=== PATIENT | female | born 1965 | race Caucasian/White ===

== ENCOUNTER → 2020-02-05 09:46 | Outpatient (BNVA) | payer BC, SELFPAY | PROVIDERS: Family Provider Family Medicine; PCP Nurse Practitioner Family; Referring Provider Nurse Practitioner Family; Visit Provider Anesthesiology Pain Medicine | DX: M47.816 Spondylosis without myelopathy or radiculopathy, lumbar region (principal); M79.18 Myalgia, other site; M06.9 Rheumatoid arthritis, unspecified; Z79.891 Long term (current) use of opiate analgesic | CPT/HCPCS: 20552; 99204; J1030; J3490 ==

== ENCOUNTER 2020-09-15 12:50 | Outpatient (CLI) | payer BC, SELFPAY ==
--- NOTE | 2020-09-15 12:57 | XR_ITS ---
WS: [id number] Lumbar spine, 3 views, 09/15/2020. Clinical Data: INJURY OF LOW BACK Comparison: None. Findings: No compression fractures or subluxation is seen. There is a dextroscoliosis of the lumbar spine. Disc space narrowing at L2-L3, L3-L4 and L4-L5 is seen. The transverse processes and SI joints are normal . Anterior osteoarthritic spurring is present from L1 through L5. Osteoporosis is noted. There is a lar ge amount of fecal material throughout the colon. XR/XR lumbar spine 2-3V* [id number] Impression: 1. Dextroscoliosis and osteoporosis. 2. Mild osteoarthritis. 3. Multilevel degenerative disc narrowing
== END 2020-09-15 12:51 | disposition home or self-care (01) ==
LOC: RAD 12:54
PROVIDERS: PCP Family Medicine; Visit Provider Family Medicine
DX: S39.92XA Unspecified injury of lower back, initial encounter (principal); X58.XXXA Exposure to other specified factors, initial encounter; M41.86 Other forms of scoliosis, lumbar region; M47.816 Spondylosis without myelopathy or radiculopathy, lumbar region
CPT/HCPCS: 72100

== ENCOUNTER 2020-10-06 09:33 | Outpatient (CLI) | payer BC, SELFPAY ==
--- NOTE | 2020-10-06 09:42 | XR_ITS ---
WS: [id number] Left hip, AP and frog leg, standing pelvis, 10/06/2020 Clinical Data: RHEUMATOID ARTHRITIS/PAIN IN L HIP Comparison: Left hip, 09/21/2011. Findings: No fractures or dislocations are seen. The left hip joint is intact. The soft tissues are not remarka ble. The adjacent pelvis is normal. The right hip is unremarkable. The pubic symphysis and SI joints are normal. XR/XR hip LT 2-3V wo/w pel* [id number] Impression: Negative pelvis and left hip.
== END 2020-10-06 09:34 | disposition home or self-care (01) ==
LOC: RAD 09:39
PROVIDERS: PCP Family Medicine; Visit Provider Internal Medicine Rheumatology
DX: M25.552 Pain in left hip (principal)
CPT/HCPCS: 73502

== ENCOUNTER 2021-05-12 16:43 | Emergency (ER) | payer BC, SELFPAY ==
[2021-05-12 17:03] VITALS: BP 122/72; PULSE 84; RESP 18; TEMP 36.8; O2SAT 88; BMI 18.1
--- NOTE | 2021-05-12 17:32 | CTR_ITS ---
PROCEDURE INFORMATION: Exam: CT Head Without Contrast Exam date and time: 05/12/2021 5:32 PM Age: 55 years old Clinical indication: Altered mental status/memory loss TECHNIQUE: Imaging protocol: Computed tomography of the head without contrast. Radiation optimization: All CT scans at this facility use at least one of these dose optimization techniques: automated exposure control; mA and/or kV adjustment per patient size (includes targeted exams where dose is matched to clinical indication); or iterative reconstruction. COMPARISON: No relevant prior studies available. RADIATION DOSE METRICS: Total DLP (mGy-cm): 669.02 FINDINGS: Brain: Normal. No hemorrhage. Unremarkable white matter. No mass effect. Cerebral ventricles: No ventriculomegaly. Paranasal sinuses: Visualized sinuses are unremarkable. No fluid levels. Mastoid air cells: Visualized mastoid air cells are well aerated. Bones/joints: Unremarkable. No acute fracture. Soft tissues: Unremarkable. CT/CT head wo con* [id number] IMPRESSION: Negative for intracranial hemorrhage or mass effect Radiation Dose CTDIVOL = (mGy): DLP = 669.02 (mGy-cm)
--- NOTE | 2021-05-12 17:32 | ECG_ITS ---
[facility] Test Date: 2021-05-12 Pat Name: Denise Claire Department: Room: Gender: Female [employer]: : 1965 Requested By: Kavon Briggs Order Number: [id number] Horacio MD: Diane Alvarez M.D. Measurements Intervals [place] Rate: 77 P: 66 UT: 80 QRS: 20 QRSD: 88 T: 59 QT: 374 QTc: 425 Interpretive Statements SINUS RHYTHM WITH SHORT UT INTERVAL POSSIBLE RIGHT VENTRICULAR CONDUCTION DELAY [RSR (QR) IN V1/V2] No previous ECG available for comparison Electronically Signed On 05-12-2021 22:20:35 CDT by Diane Alvarez M.D. [id number] f
--- NOTE | 2021-05-12 17:32 | XRR_ITS ---
PROCEDURE INFORMATION: Exam: XR Chest Exam date and time: 05/12/2021 5:32 PM Age: 55 years old Clinical indication: Cough and shortness of breath; Additional info: Dyspnea/cough TECHNIQUE: Imaging protocol: XR of the chest. Views: 1 view. COMPARISON: [facility] Chest 2 views 12/03/2018 1:50 PM FINDINGS: Lungs: Left-sided large bulla and emphysematous changes similar to prior exam causing some rightward deviation of the trachea. Bibasilar atelectasis. Pleural spaces: Unremarkable. No pleural effusion. No pneumothorax. Heart/Mediastinum: Unremarkable. No cardiomegaly. Bones/joints: Unremarkable. XR/XR chest 1V portable [id number] IMPRESSION: 1. Left-sided large bulla and emphysematous changes similar to prior exam causing some rightward deviation of the trachea. 2. Bibasilar atelectasis.
[2021-05-12 17:33] VITALS: PULSE 74; RESP 16; O2SAT 90
[2021-05-12 17:49] LABS: ABG PCO2 49.8 mmHg (35-45); ABG PH Result 7.37 (7.35-7.45); Alveolar-Arterial Oxygen Gradi 2.1 mmHg (5-10); Arterial Blood Gas Hematocrit 37.2 % (37-47); Base Excess ABG 2.4 mmol/L (-2.0-2.0); Blood Gas Sample Type Arterial; Carboxyhemoglobin 0.3 %THgb (0.4-20.1); HCO3 ABG 28.5 mmol/L (22-26); HGB O2 Sat 89.4 % (95-100); Ionized Calcium Level - ABG 1.2 mmol/L (1.1-1.4); Methemoglobin 2.3 % (0.4-1.5); Oxygen Saturation ABG 91.7; PO2 ABG 71.9 mmHg (80.0-100.0); Potassium Level - ABG 4.1 mmol/L (3.5-5.0); Total Hemoglobin 12.1 g/dL (12-16)
[2021-05-12 17:51] LABS: Blood Gas Operator Identificat ED; Blood Gas Sample Site Brachial, left; Oxygen Device ROOM AIR
--- NOTE | 2021-05-12 17:52 | ED_ITS ---
Documented by User: Kavon Hall DO 05/16/21 06:07 HPI - Altered Mental Status General: Chief Complaint: Altered Mental Status Stated Complaint: UNABLE TO STAY AWAKE Time Seen by Provider: 05/12/21 17:08 History of Present Illness: HPI narrative: 55-year-old female presents emergency room with altered mental status is difficult time staying awake family member at the bedside said this began yesterday. She does have a history of rheumatoid arthritis and she is on Humira she had some flareup of joint effusion is pretty impressive in the right hand. She denies any fever sweats chills dysuria urgency or frequency cough shortness of breath abdominal pain leg pain swelling or discomfort. She is not had any anosmia she has had both of her Covid vaccines. There is no known history of cancer heart disease or liver disease. She does take hydrocodone for pain. She also takes a plethora of other drugs which could contribute to her symptoms. There are no reports of any focal neurologic deficits and she has none present at the time of presentation. MD complaint: altered mental status and confusion Onset (ago): hour(s) Timing confirmed by: family member Severity: moderate Consistency of symptoms: Waxing and Waning Associated symptoms: Deny auditory hallucinations, visual hallucinations, delusions, depression, homicidal ideation, racing thoughts or suicidal ideation Review of Systems Const: Denies: fever(s), chills, body aches, change in appetite, fatigue or malaise ENMT: Denies: throat pain, ear or mastoid pain, nasal discharge or nasal congestion Card: Denies: chest pain, edema, dyspnea on exertion or orthopnea Resp: Denies: dyspnea, productive cough or non-productive cough GI: Denies: abdominal pain, nausea, vomiting, hematemesis, coffee ground emesis, diarrhea, constipation, bloating, hematochezia or melena : Denies: flank pain, difficulty voiding, dysuria, urinary frequency or urinary urgency Skin/Breast: Denies: rash or pruritus Psych: Denies: depression, visual hallucinations, auditory hallucinations, suicidal ideation or homicidal ideation [facility] ED PFSH: Medical History COPD (chronic obstructive pulmonary disease) Facet arthritis, degenerative, lumbar spine Hypertension FCI (current) use of opiate analgesic Lumbar paraspinal muscle spasm Myofascial pain dysfunction syndrome Pain management contract signed Rheumatoid arthritis Surgical History Hx of hysterectomy Tubal ligation status Family History Other Family history non-contributory Social History Smoking and tobacco status: current every day smoker cigarettes Packs smoked per day: 0.75 Alcohol intake: current Alcohol intake frequency: holidays/special occasions only Household members: spouse Marital status: History of recent travel: No Physical Exam Const: COMMON NORMALS: no acute distress GENERAL APPEARANCE: cooperative and comfortable HENMT: COMMON NORMALS: normocephalic, atraumatic and hearing grossly normal bilaterally HEAD & SCALP: normocephalic and atraumatic Eye: COMMON NORMALS: Equal, round and reactive pupils present, EOMs intact bilaterally, conjunctivae normal and no scleral icterus CONJUNCTIVA: Yes con junctivae normal PUPIL: Yes Equal, round and reactive pupils present Neck/C-Spine: COMMON NORMALS: no JVD Lymph: LYMPHATIC: no lymphadenopathy noted and no lymphedema noted Resp: COMMON NORMALS: normal respiratory effort, No retractions, No use of accessory muscles and clear to auscultation bilaterally AUSCULTATION: clear to auscultation bilaterally Cardio: COMMON NORMALS: no JVD, regular rate, regular rhythm and No murmurs present (Cardio) RATE: regular rate RHYTHM: regular rhythm GI: COMMON NORMALS: Soft to palpation and No hepatosplenomegaly present AUSCULTATION: Yes normoactive bowel sounds PALPATION: Yes Soft to palpation, No Tenderness to palpation present (GI), No Guarding due to palpation present (GI) and Yes No hepatosplenomegaly present Extremity: COMMON NORMALS: normal to inspection, capillary refill normal, no clubbing, cyanosis or edema, no calf tenderness and no pedal edema Psych: THOUGHT CONTENT: No delusions Skin: COMMON NORMALS: no rashes or lesions noted GENERAL SKIN EXAM: no ra shes or lesions noted Course Vital Signs: Vital signs: Vital Signs Temperature 98.3 F 05/12/21 17:03 Pulse Rate 102 H 06/18/21 22:48 Respiratory Rate 23 H 05/12/21 22:48 Blood Pressure 155/77 05/12/21 22:48 Pulse Oximetry 96 05/12/21 22:48 MDM - Altered Mental Status MDM Narrative: Medical decision making narrative: Labs pending care turned over to Dr. Garg at change of shift see his notes for final diagnosis and disposition Lab Data: Labs: Lab Results 05/12/21 05/12/21 05/12/21 Range/Units 17:41 18:24 18:24 WBC 9.5 (4.0-10.0) 10^3/ uL RBC 3.92 L (4.1-5.3) 10^6/u L Hgb 11.7 (11.5-15.3) g/dL Hct 38.4 (37.0-47.0) % MCV 98.0 (81-99) fL MCH 29.8 (28.0-34.0) pg MCHC 30.5 (30.0-36.0) g/dL RDW 14.8 (12.1-15.1) % Plt Count 341 (130-400) 10^3/c mm MPV 10.4 (7.4-10.4) fL Neut % (Auto) 71.7 % Lymph % (Auto) 14.0 % [place] % (Auto) 11.9 % Eos % (Auto) 1.0 % Baso % (Auto) 1.0 % Neut # (Auto) 6.79 (1.8-7.7) 10^3/u L Lymph # (Auto) 1.3 (0.8-4.8) 10^3/u L [place] # (Auto) 1.1 H (0.2-0.9) 10^3/u L Eos # (Auto) 0.1 (0.0-0.8) 10^3/u L Baso # (Auto) 0.1 (0.0-0.1) 10^3/u L Nucleated RBC % (a uto) 0 % Nucleated RBCs # 0.0 /100WBC D-Dimer (0-0.59) ug/mIFE U Specimen Type Arterial Sample Site Brachial, left ABG pH 7.37 (7.35-7.45) ABG pCO2 49.8 H (35-45) mmHg ABG pO2 71.9 L (80.0-100.0) mmH g ABG HCO3 28.5 H (22-26) mmol/L ABG O2 Saturation 91.7 ABG Base Excess 2.4 H (-2.0-2.0) mmol/ L Nestor Test N/a A-a O2 Gradient 2.1 L (5-10) mmHg Hematocrit 37.2 (37-47) % Hgb O2 Saturation 89.4 L (95-100) % Carboxyhemoglobin 0.3 L (0.4-20.1) %THgb Methemoglobin 2.3 H (0.4-1.5) % Total Hemoglobin 12.1 (12-16) g/dL Sodium 147.0 H (131-143) mmol/L Potassium 4.1 (3.5-5.0) mmol/L Glucose 74.0 (70-115) mg/dL Ionized Calcium 1.2 (1.1-1.4) mmol/L O2 Delivery Device Room air FiO2 21.0 % Pipe Cleaning Machine Operator ID Ed Chloride (98-107) mmol/L Carbon Dioxide (22-29) mmol/L Anion Gap (5-19) BUN (6-20) mg/dL Creatinine (0.5-0.9) mg/dL GFR Calculation (90-130) mL/min Calculated Osmolal ity (285-295) mOsm/k g Lactic Acid 0.9 (0.5-2.2) mmol/L Calcium (8.5-10.5) mg/dL Magnesium (1.7-2.3) mg/dL Total Bilirubin (0.15-1.2) mg/dL AST (0-32) U/L ALT (0-33) U/L Alkaline Phosphata se (35-105) IU/L Ammonia (11-51) umol/L Creatine Kinase (26-192) U/L Troponin T Baselin e (0-10) ng/L Troponin T 120 [address] [place] (0-10) ng/L Delta Troponin T (0-10) ABS# Total Protein (6.6-8.7) g/dL Albumin (3.5-5.2) g/dL Globulin (1.3-4.6) g/dL Lipase (13-60) U/L Urine Color (Yellow) Urine Appearance (CLEAR) Urine pH (5-7) Ur Specific Gravit y (1.005-1.030) Urine Protein (Negative) Urine Glucose (UA) (Normal) Urine Ketones (Negative) Urine Blood (Negative) Urine Nitrate (Negative) Urine Bilirubin (Negative) Urine Urobilinogen (Negative) mg/dL Ur Leukocyte Krystle ase (Negative) 05/12/21 05/12/21 05/12/21 Range/Units 18:24 18:24 18:24 WBC (4.0-10.0) 10^3/ uL RBC (4.1-5.3) 10^6/u L Hgb (11.5-15.3) g/dL Hct (37.0-47.0) % MCV (81-99) fL MCH (28.0-34.0) pg MCHC (30.0-36.0) g/dL RDW (12.1-15.1) % Plt Count (130-400) 10^3/c mm MPV (7.4-10.4) fL Neut % (Auto) % Lymph % (Auto) % [place] % (Auto) % Eos % (Auto) % Baso % (Auto) % Neut # (Auto) (1.8-7.7) 10^3/u L Lymph # (Auto) (0.8-4.8) 10^3/u L [place] # (Auto) (0.2-0.9) 10^3/u L Eos # (Auto) (0.0-0.8) 10^3/u L Baso # (Auto) (0.0-0.1) 10^3/u L Nucleated RBC % (a uto) % Nucleated RBCs # /100WBC D-Dimer (0-0.59) ug/mIFE U Specimen Type Sample Site ABG pH (7.35-7.45) ABG pCO2 (35-45) mmHg ABG pO2 (80.0-100.0) mmH g ABG HCO3 (22-26) mmol/L ABG O2 Saturation ABG Base Excess (-2.0-2.0) mmol/ L Nestor Test A-a O2 Gradient (5-10) mmHg Hematocrit (37-47) % Hgb O2 Saturation (95-100) % Carboxyhemoglobin (0.4-20.1) %THgb Methemoglobin (0.4-1.5) % Total Hemoglobin (12-16) g/dL Sodium 144 (131-143) mmol/L Potassium 4.6 (3.5-5.0) mmol/L Glucose 67 (70-115) mg/dL Ionized Calcium (1.1-1.4) mmol/L O2 Delivery Device FiO2 % Pipe Cleaning Machine Operator ID Chloride 105 (98-107) mmol/L Carbon Dioxide 29 (22-29) mmol/L Anion Gap 14.6 (5-19) BUN 39 H (6-20) mg/dL Creatinine 1.0 H (0.5-0.9) mg/dL GFR Calculation 57.6 L (90-130) mL/min Calculated Osmolal ity 306 H (285-295) mOsm/k g Lactic Acid (0.5-2.2) mmol/L Calcium 9.4 (8.5-10.5) mg/dL Magnesium 2.3 (1.7-2.3) mg/dL Total Bilirubin 0.4 (0.15-1.2) mg/dL AST 20 (0-32) U/L ALT 21 (0-33) U/L Alkaline Phosphata se 79 (35-105) IU/L Ammonia 10 L (11-51) umol/L Creatine Kinase 45 (26-192) U/L Troponin T Baselin e 15 H (0-10) ng/L Troponin T 120 Min [place] (0-10) ng/L Delta Troponin T (0-10) ABS# Total Protein 6.0 L (6.6-8.7) g/dL Albumin 3.8 (3.5-5.2) g/dL Globulin 2.2 (1.3-4.6) g/dL Lipase 15 (13-60) U/L Urine Color (Yellow) Urine Appearance (CLEAR) Urine pH (5-7) Ur Specific Gravit y (1.005-1.030) Urine Protein (Negative) Urine Glucose (UA) (Normal) Urine Ketones (Negative) Urine Blood (Negative) Urine Nitrate (Negative) Urine Bilirubin (Negative) Urine Urobilinogen (Negative) mg/dL Ur Leukocyte Krystle ase (Negative) 05/12/21 05/12/21 05/12/21 Range/Units 19:03 21:28 21:28 WBC (4.0-10.0) 10^3/ uL RBC (4.1-5.3) 10^6/u L Hgb (11.5-15.3) g/dL Hct (37.0-47.0) % MCV (81-99) fL MCH (28.0-34.0) pg MCHC (30.0-36.0) g/dL RDW (12.1-15.1) % Plt Count (130-400) 10^3/c mm MPV (7.4-10.4) fL Neut % (Auto) % Lymph % (Auto) % [place] % (Auto) % Eos % (Auto) % Baso % (Auto) % Neut # (Auto) (1.8-7.7) 10^3/u L Lymph # (Auto) (0.8-4.8) 10^3/u L [place] # (Auto) (0.2-0.9) 10^3/u L Eos # (Auto) (0.0-0.8) 10^3/u L Baso # (Auto) (0.0-0.1) 10^3/u L Nucleated RBC % (a uto) % Nucleated RBCs # /100WBC D-Dimer 0.36 (0-0.59) ug/mIFE U Specimen Type Sample Site ABG pH (7.35-7.45) ABG pCO2 (35-45) mmHg ABG pO2 (80.0-100.0) mmH g ABG HCO3 (22-26) mmol/L ABG O2 Saturation ABG Base Excess (-2.0-2.0) mmol/ L Nestor Test A-a O2 Gradient (5-10) mmHg Hematocrit (37-47) % Hgb O2 Saturation (95-100) % Carboxyhemoglobin (0.4-20.1) %THgb Methemoglobin (0.4-1.5) % Total Hemoglobin (12-16) g/dL Sodium (131-143) mmol/L Potassium (3.5-5.0) mmol/L Glucose (70-115) mg/dL Ionized Calcium (1.1-1.4) mmol/L O2 Delivery Device FiO2 % Pipe Cleaning Machine Operator ID Chloride (98-107) mmol/L Carbon Dioxide (22-29) mmol/L Anion Gap (5-19) BUN (6-20) mg/dL Creatinine (0.5-0.9) mg/dL GFR Calculation (90-130) mL/min Calculated Osmolal ity (285-295) mOsm/k g Lactic Acid (0.5-2.2) mmol/L Calcium (8.5-10.5) mg/dL Magnesium (1.7-2.3) mg/dL Total Bilirubin (0.15-1.2) mg/dL AST (0-32) U/L ALT (0-33) U/L Alkaline Phosphata se (35-105) IU/L Ammonia (11-51) umol/L Creatine Kinase (26-192) U/L Troponin T Baselin e (0-10) ng/L Troponin T 120 Min [place] 13.79 H (0-10) ng/L Delta Troponin T -1.21 L (0-10) ABS# Total Protein (6.6-8.7) g/dL Albumin (3.5-5.2) g/dL Globulin (1.3-4.6) g/dL Lipase (13-60) U/L Urine Color Yellow (Yellow) Urine Appearance Clear (CLEAR) Urine pH 5 (5-7) Ur Specific Gravit y 1.025 (1.005-1.030) Urine Protein Neg (Negative) Urine Glucose (UA) Norm (Normal) Urine Ketones 1+ H (Negative) Urine Blood Neg (Negative) Urine Nitrate Negative (Negative) Urine Bilirubin Neg (Negative) Urine Urobilinogen Norm (Negative) mg/dL Ur Leukocyte Krystle ase Negative (Negative) Discharge Plan Discharge Patient Disposition: Placed in Observation Clinical Impression: Altered mental status, Acute dehydration, Respiratory failure Condition: Stable Prescriptions: No Action ferrous sulfate 325 mg (65 mg iron) tablet 325 mg PO DAILY RF: 0 hydrocodone-acetaminophen 10-325 mg tablet 1 tab PO Q8H PRN (Reason: Pain) RF: 0 Xeljanz XR 11 mg tablet extended release 24 hr 11 mg PO DAILY RF: 0 prednisone 10 mg tablet 10 mg PO DAILY RF: 0 baclofen 10 mg tablet 10 mg PO TID RF: 0 lisinopril 40 mg tablet 40 mg PO DAILY RF: 0 simvastatin 10 mg tablet 10 mg PO DAILY RF: 0 Symbicort 80-4.5 mcg/actuation HFA aerosol inhaler 2 puff INHALATION BID RF: 0 vitamin B complex [B Complex-Vitamin B12] Tablet 1 tab PO DAILY RF: 0 amitriptyline 25 mg tablet 25 mg PO DAILY RF: 0 paroxetine HCl 30 mg tablet 30 mg PO DAILY RF: 0 aspirin [Enteric Coated Aspirin] 81 mg tablet,delayed release (DR/EC) 81 mg PO DAILY RF: 0 leflunomide 20 mg tablet 20 mg PO DAILY RF: 0 amlodipine 5 mg tablet 5 mg PO DAILY RF: 0 cholecalciferol (vitamin D3) 25 mcg (1,000 unit) capsule 25 mcg PO DAILY RF: 0 Mucus Relief D (pseudoephed) 60-600 mg tablet extended release 12 hr 1 tab PO DAILY PRN (Reason: Congestion) RF: 0 gabapentin 300 mg capsule 300 mg PO DAILY RF: 0 duloxetine 60 mg capsule,delayed release(DR/EC) 60 mg PO DAILY RF: 0 Humira(CF) Pen 40 mg/0.4 mL pen injector kit 40 mg SUBCUT Q7D RF: 0 Discharge Orders: Discharge Order (Routine); Ordered 05/12/21 Ordered By: Surya Garg Discharge ED (Routine); Ordered 05/12/21 Ordered By: Surya Garg Referrals: Carolee Dueñas DO [Primary Care Provider] - Patient Instructions: Dehydration (ED), Altered Mental Status (ED), Opioid Safety Activity Restrictions/Additional Instructions: Make sure you drink plenty of liquids, particularly for the next 24 to 48 hours. Decrease the hydrocodone by 2 pills daily, the baclofen by 2 pills daily, and stop the gabapentin. Follow-up with your primary care doctor regarding further medication changes. Return for worsening mental status despite treatment. 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 Lumbar paraspinal muscle spasm Myofascial pain dysfunction syndrome Pain management contract signed Rheumatoid arthritis Surgical History Hx of hysterectomy Tubal ligation status Family History Other Family history non-contributory Social History Smoking and tobacco status: current every day smoker cigarettes Packs smoked per day: 0.75 Alcohol intake: current Alcohol intake frequency: holidays/special occasions only Household members: spouse Marital status: History of recent travel: No Course Consultations: Consultation #1: blake Time: 21:44 Vital Signs: Vital signs: Vital Signs Temperature 98.3 F 05/12/21 17:03 Pulse Rate 102 H 05/12/21 22:48 Respiratory Rate 23 H 05/12/21 22:48 Blood Pressure 155/77 05/12/21 22:48 Pulse Oximetry 96 05/12/21 22:48 MDM - Altered Mental Status MDM Narrative: Medical decision making narrative: 55-year-old female checked out to me by Dr. Hall. There is a history of mild mental status change. The patient's laboratory is not terribly abnormal. She does have a elevated BUN, and mild elevation in creatinine indicating dehydration that is likely mild. Her other labs are noncontributory. Her chest x-ray and brain CT are negative. She likely is experiencing effects of polypharmacy given duloxetine amitriptyline gabapentin hydrocodone baclofen, and possibly paroxetine. However, she is hypoxic at rest, with oxygen saturations as low as 83% on room air. She was placed on 2 L with oxygen saturations above 90%. She is very sleepy, awakens to voice. She would be a fall risk at home. She will be observed. The patient is now stating that she wants to go home. Her son is here with her, and agrees to take her home. They were strongly advised that she needs to stay in the hospital. They know the risks of taking the patient home who is hypoxic during sleep. They were advised to decrease her dosage of medicine, make sure she is hydrated, and return for any problems. Lab Data: Labs: Lab Results 05/12/21 05/12/21 05/12/21 Range/Units 17:41 18:24 18:24 WBC 9.5 (4.0-10.0) 10^3/ uL RBC 3.92 L (4.1-5.3) 10^6/u L Hgb 11.7 (11.5-15.3) g/dL Hct 38.4 (37.0-47.0) % MCV 98.0 (81-99) fL MCH 29.8 (28.0-34.0) pg MCHC 30.5 (30.0-36.0) g/dL RDW 14.8 (12.1-15.1) % Plt Count 341 (130-400) 10^3/c mm MPV 10.4 (7.4-10.4) fL Neut % (Auto) 71.7 % Lymph % (Auto) 14.0 % [place] % (Auto) 11.9 % Eos % (Auto) 1.0 % Baso % (Auto) 1.0 % Neut # (Auto) 6.79 (1.8-7.7) 10^3/u L Lymph # (Auto) 1.3 (0.8-4.8) 10^3/u L [place] # (Auto) 1.1 H (0.2-0.9) 10^3/u L Eos # (Auto) 0.1 (0.0-0.8) 10^3/u L Baso # (Auto) 0.1 (0.0-0.1) 10^3/u L Nucleated RBC % (a uto) 0 % Nucleated RBCs # 0.0 /100WBC D-Dimer (0-0.59) ug/mIFE U Specimen Type Arterial Sample Site Brachial, left ABG pH 7.37 (7.35-7.45) ABG pCO2 49.8 H (35-45) mmHg ABG pO2 71.9 L (80.0-100.0) mmH g ABG HCO3 28.5 H (22-26) mmol/L ABG O2 Saturation 91.7 ABG Base Excess 2.4 H (-2.0-2.0) mmol/ L Nestor Test N/a A-a O2 Gradient 2.1 L (5-10) mmHg Hematocrit 37.2 (37-47) % Hgb O2 Saturation 89.4 L (95-100) % Carboxyhemoglobin 0.3 L (0.4-20.1) %THgb Methemoglobin 2.3 H (0.4-1.5) % Total Hemoglobin 12.1 (12-16) g/dL Sodium 147.0 H (131-143) mmol/L Potassium 4.1 (3.5-5.0) mmol/L Glucose 74.0 (70-115) mg/dL Ionized Calcium 1.2 (1.1-1.4) mmol/L O2 Delivery Device Room air FiO2 21.0 % Pipe Cleaning Machine Operator ID Ed Chloride (98-107) mmol/L Carbon Dioxide (22-29) mmol/L Anion Gap (5-19) BUN (6-20) mg/dL Creatinine (0.5-0.9) mg/dL GFR Calculation (90-130) mL/min Calculated Osmolal ity (285-295) mOsm/k g Lactic Acid 0.9 (0.5-2.2) mmol/L Calcium (8.5-10.5) mg/dL Magnesium (1.7-2.3) mg/dL Total Bilirubin (0.15-1.2) mg/dL AST (0-32) U/L ALT (0-33) U/L Alkaline Phosphata se (35-105) IU/L Ammonia (11-51) umol/L Creatine Kinase (26-192) U/L Troponin T Baselin e (0-10) ng/L Troponin T 120 Min [place] (0-10) ng/L Delta Troponin T (0-10) ABS# Total Protein (6.6-8.7) g/dL Albumin (3.5-5.2) g/dL Globulin (1.3-4.6) g/dL Lipase (13-60) U/L Urine Color (Yellow) Urine Appearance (CLEAR) Urine pH (5-7) Ur Specific Gravit y (1.005-1.030) Urine Protein (Negative) Urine Glucose (UA) (Normal) Urine Ketones (Negative) Urine Blood (Negative) Urine Nitrate (Negative) Urine Bilirubin (Negative) Urine Urobilinogen (Negative) mg/dL Ur Leukocyte Krystle ase (Negative) 05/12/21 05/12/21 05/12/21 Range/Units 18:24 18:24 18:24 WBC (4.0-10.0) 10^3/ uL RBC (4.1-5.3) 10^6/u L Hgb (11.5-15.3) g/dL Hct (37.0-47.0) % MCV (81-99) fL MCH (28.0-34.0) pg MCHC (30.0-36.0) g/dL RDW (12.1-15.1) % Plt Count (130-400) 10^3/c mm MPV (7.4-10.4) fL Neut % (Auto) % Lymph % (Auto) % [place] % (Auto) % Eos % (Auto) % Baso % (Auto) % Neut # (Auto) (1.8-7.7) 10^3/u L Lymph # (Auto) (0.8-4.8) 10^3/u L [place] # (Auto) (0.2-0.9) 10^3/u L Eos # (Auto) (0.0-0.8) 10^3/u L Baso # (Auto) (0.0-0.1) 10^3/u L Nucleated RBC % (a uto) % Nucleated RBCs # /100WBC D-Dimer (0-0.59) ug/mIFE U Specimen Type Sample Site ABG pH (7.35-7.45) ABG pCO2 (35-45) mmHg ABG pO2 (80.0-100.0) mmH g ABG HCO3 (22-26) mmol/L ABG O2 Saturation ABG Base Excess (-2.0-2.0) mmol/ L Nestor Test A-a O2 Gradient (5-10) mmHg Hematocrit (37-47) % Hgb O2 Saturation (95-100) % Carboxyhemoglobin (0.4-20.1) %THgb Methemoglobin (0.4-1.5) % Total Hemoglobin (12-16) g/dL Sodium 144 (131-143) mmol/L Potassium 4.6 (3.5-5.0) mmol/L Glucose 67 (70-115) mg/dL Ionized Calcium (1.1-1.4) mmol/L O2 Delivery Device FiO2 % Pipe Cleaning Machine Operator ID Chloride 105 (98-107) mmol/L Carbon Dioxide 29 (22-29) mmol/L Anion Gap 14.6 (5-19) BUN 39 H (6-20) mg/dL Creatinine 1.0 H (0.5-0.9) mg/dL GFR Calculation 57.6 L (90-130) mL/min Calculated Osmolal ity 306 H (285-295) mOsm/k g Lactic Acid (0.5-2.2) mmol/L Calcium 9.4 (8.5-10.5) mg/dL Magnesium 2.3 (1.7-2.3) mg/dL Total Bilirubin 0.4 (0.15-1.2) mg/dL AST 20 (0-32) U/L ALT 21 (0-33) U/L Alkaline Phosphata se 79 (35-105) IU/L Ammonia 10 L (11-51) umol/L Creatine Kinase 45 (26-192) U/L Troponin T Baselin e 15 H (0-10) ng/L Troponin T 120 Min [place] (0-10) ng/L Delta Troponin T (0-10) ABS# Total Protein 6.0 L (6.6-8.7) g/dL Albumin 3.8 (3.5-5.2) g/dL Globulin 2.2 (1.3-4.6) g/dL Lipase 15 (13-60) U/L Urine Color (Yellow) Urine Appearance (CLEAR) Urine pH (5-7) Ur Specific Gravit y (1.005-1.030) Urine Protein (Negative) Urine Glucose (UA) (Normal) Urine Ketones (Negative) Urine Blood (Negative) Urine Nitrate (Negative) Urine Bilirubin (Negative) Urine Urobilinogen (Negative) mg/dL Ur Leukocyte Krystle ase (Negative) 05/12/21 05/12/21 05/12/21 Range/Units 19:03 21:28 21:28 WBC (4.0-10.0) 10^3/ uL RBC (4.1-5.3) 10^6/u L Hgb (11.5-15.3) g/dL Hct (37.0-47.0) % MCV (81-99) fL MCH (28.0-34.0) pg MCHC (30.0-36.0) g/dL RDW (12.1-15.1) % Plt Count (130-400) 10^3/c mm MPV (7.4-10.4) fL Neut % (Auto) % Lymph % (Auto) % [place] % (Auto) % Eos % (Auto) % Baso % (Auto) % Neut # (Auto) (1.8-7.7) 10^3/u L Lymph # (Auto) (0.8-4.8) 10^3/u L [place] # (Auto) (0.2-0.9) 10^3/u L Eos # (Auto) (0.0-0.8) 10^3/u L Baso # (Auto) (0.0-0.1) 10^3/u L Nucleated RBC % (a uto) % Nucleated RBCs # /100WBC D-Dimer 0.36 (0-0.59) ug/mIFE U Specimen Type Sample Site ABG pH (7.35-7.45) ABG pCO2 (35-45) mmHg ABG pO2 (80.0-100.0) mmH g ABG HCO3 (22-26) mmol/L ABG O2 Saturation ABG Base Excess (-2.0-2.0) mmol/ L Nestor Test A-a O2 Gradient (5-10) mmHg Hematocrit (37-47) % Hgb O2 Saturation (95-100) % Carboxyhemoglobin (0.4-20.1) %THgb Methemoglobin (0.4-1.5) % Total Hemoglobin (12-16) g/dL Sodium (131-143) mmol/L Potassium (3.5-5.0) mmol/L Glucose (70-115) mg/dL Ionized Calcium (1.1-1.4) mmol/L O2 Delivery Device FiO2 % Pipe Cleaning [employer] Operator ID Chloride (98-107) mmol/L Carbon Dioxide (22-29) mmol/L Anion Gap (5-19) BUN (6-20) mg/dL Creatinine (0.5-0.9) mg/dL GFR Calculation (90-130) mL/min Calculated Osmolal ity (285-295) mOsm/k g Lactic Acid (0.5-2.2) mmol/L Calcium (8.5-10.5) mg/dL Magnesium (1.7-2.3) mg/dL Total Bilirubin (0.15-1.2) mg/dL AST (0-32) U/L ALT (0-33) U/L Alkaline Phosphata se (35-105) IU/L Ammonia (11-51) umol/L Creatine Kinase (26-192) U/L Troponin T Baselin e (0-10) ng/L Troponin T 120 Min [place] 13.79 H (0-10) ng/L Delta Troponin T -1.21 L (0-10) ABS# Total Protein (6.6-8.7) g/dL Albumin (3.5-5.2) g/dL Globulin (1.3-4.6) g/dL Lipase (13-60) U/L Urine Color Yellow (Yellow) Urine Appearance Clear (CLEAR) Urine pH 5 (5-7) Ur Specific Gravit y 1.025 (1.005-1.030) Urine Protein Neg (Negative) Urine Glucose (UA) Norm (Normal) Urine Ketones 1+ H (Negative) Urine Blood Neg (Negative) Urine Nitrate Negative (Negative) Urine Bilirubin Neg (Negative) Urine Urobilinogen Norm (Negative) mg/dL Ur Leukocyte Krystle ase Negative (Negative) Discharge Plan Discharge Patient Disposition: Placed in Observation Clinical Impression: Altered mental status, Acute dehydration, Respiratory failure Condition: Stable Prescriptions: No Action ferrous sulfate 325 mg (65 mg iron) tablet 325 mg PO DAILY RF: 0 hydrocodone-acetaminophen 10-325 mg tablet 1 tab PO Q8H PRN (Reason: Pain) RF: 0 Xeljanz XR 11 mg tablet extended release 24 hr 11 mg PO DAILY RF: 0 prednisone 10 mg tablet 10 mg PO DAILY RF: 0 baclofen 10 mg tablet 10 mg PO TID RF: 0 lisinopril 40 mg tablet 40 mg PO DAILY RF: 0 simvastatin 10 mg tablet 10 mg PO DAILY RF: 0 Symbicort 80-4.5 mcg/actuation HFA aerosol inhaler 2 puff INHALATION BID RF: 0 vitamin B complex [B Complex-Vitamin B12] Tablet 1 tab PO DAILY RF: 0 amitriptyline 25 mg tablet 25 mg PO DAILY RF: 0 paroxetine HCl 30 mg tablet 30 mg PO DAILY RF: 0 aspirin [Enteric Coated Aspirin] 81 mg tablet,delayed release (DR/EC) 81 mg PO DAILY RF: 0 leflunomide 20 mg tablet 20 mg PO DAILY RF: 0 amlodipine 5 mg tablet 5 mg PO DAILY RF: 0 cholecalciferol (vitamin D3) 25 mcg (1,000 unit) capsule 25 mcg PO DAILY RF: 0 Mucus Relief D (pseudoephed) 60-600 mg tablet extended release 12 hr 1 tab PO DAILY PRN (Reason: Congestion) RF: 0 gabapentin 300 mg capsule 300 mg PO DAILY RF: 0 duloxetine 60 mg capsule,delayed release(DR/EC) 60 mg PO DAILY RF: 0 Humira(CF) Pen 40 mg/0.4 mL pen injector kit 40 mg SUBCUT Q7D RF: 0 Discharge Orders: Discharge Order (Routine); Ordered 05/12/21 Ordered By: Surya Garg Discharge ED (Routine); Ordered 05/12/21 Ordered By: Surya Garg Referrals: Carolee Dueñas DO [Primary Care Provider] - Patient Instructions: Dehydration (ED), Altered Mental Status (ED), Opioid Safety Activity Restrictions/Additional Instructions: Make sure you drink plenty of liquids, particularly for the next 24 to 48 hours. Decrease the hydrocodone by 2 pills daily, the baclofen by 2 pills daily, and stop the gabapentin. Follow-up with your primary care doctor regarding further medication changes. Return for worsening mental status despite treatment. Coding Level of Care Code ED Sponge Packer for Lucinda Fwd Exam Comprehensive
[2021-05-12 18:34] LABS: Basophils # 0.1 10^3/uL (0.0-0.1); Eosinophils # 0.1 10^3/uL (0.0-0.8); Hematocrit 38.4 % (37.0-47.0); Hemoglobin 11.7 g/dL (11.5-15.3); Lymphocytes # 1.3 10^3/uL (0.8-4.8); Mean Corpuscular HGB Conc 30.5 g/dL (30.0-36.0); Mean Corpuscular Hemoglobin 29.8 pg (28.0-34.0); Mean Platelet Volume 10.4 fL (7.4-10.4); Monocytes # 1.1 10^3/uL (0.2-0.9); Monocytes % 11.9 %; Neutrophils # 6.79 10^3/uL (1.8-7.7); Neutrophils % 71.7 %; Nucleated Red Blood Cells % 0 %; Platelet Count 341 10^3/cmm (130-400); Red Blood Count 3.92 10^6/uL (4.1-5.3); Red Cell Distribution Width 14.8 % (12.1-15.1); White Blood Count 9.5 10^3/uL (4.0-10.0)
[2021-05-12 19:07] LABS: Lactic Sepsis W/Reflex 0.9 mmol/L (0.5-2.2)
[2021-05-12 19:08] LABS: Ammonia 10 umol/L (11-51)
[2021-05-12 19:09] LABS: Alanine Aminotransferase 21 U/L (0-33); Albumin Level 3.8 g/dL (3.5-5.2); Alkaline Phosphatase 79 IU/L (35-105); Anion Gap 14.6 (5-19); Aspartate Amino Transferase 20 U/L (0-32); Blood Urea Nitrogen 39 mg/dL (6-20); Calcium 9.4 mg/dL (8.5-10.5); Carbon Dioxide 29 mmol/L (22-29); Chloride 105 mmol/L (98-107); Creatine Phosphokinase 45 U/L (26-192); Creatinine Clr Calc Pharmacy 40.9647; Globulin 2.2 g/dL (1.3-4.6); Glomerular Filtration Rate 57.6 mL/min (90-130); Glucose 67 mg/dL (65-115); Lipase 15 U/L (13-60); Magnesium 2.3 mg/dL (1.7-2.3); Osmolality Calculated 306 mOsm/kg (285-295); Potassium 4.6 mmol/L (3.5-5.1); Sodium 144 mmol/L (136-145); Total Bilirubin 0.4 mg/dL (0.15-1.2)
[2021-05-12 19:10] LABS: Troponin(5th) Baseline 15 ng/L (0-10)
[2021-05-12 19:11] LABS: Add Urine Microscopic? NO; Charge for UA Resulting for Rev
[2021-05-12 19:14] LABS: Urine Appearance Clear (CLEAR); Urine Color Yellow (Yellow); pH Urine 5 (5-7)
[2021-05-12 19:15] LABS: Bilirubin Urine Neg (Negative); Blood Urine Neg (Negative); Glucose Urine UA Norm (Normal); Ketones Urine 1+ (Negative); Leukocyte Esterase Urine Negative (Negative); Nitrate Urine Negative (Negative); Protein Urine Neg (Negative); Specific Gravity, Urine 1.025 (1.005-1.030); Urobilinogen Urine Norm (Negative)
--- NOTE | 2021-05-12 19:33 | ECG_ITS ---
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 Measurements Intervals [place] Rate: 88 P: 78 NM: 105 QRS: 27 QRSD: 84 T: 74 QT: 343 QTc: 415 Interpretive Statements SINUS RHYTHM WITH SHORT NM INTERVAL POSSIBLE RIGHT ATRIAL ENLARGEMENT [0.25mV P WAVE] POSSIBLE LEFT ATRIAL ENLARGEMENT [-0.1mV P WAVE IN V1/V2] POSSIBLE RIGHT VENTRICULAR CONDUCTION DELAY [RSR (QR) IN V1/V2] Compared to ECG 05/12/2021 18:14:31 No significant changes Electronically Signed On 05-12-2021 22:32:24 CDT by Diane Alvarez M.D. [id number]
[2021-05-12] MEDS: sodium chloride 0.9% 1,000 ML 999 ML IV (20:18)
[2021-05-12 21:00] VITALS: BP 157/95; PULSE 102; RESP 23; O2SAT 99
[2021-05-12 21:55] LABS: Troponin 5 2HR 13.79 ng/L (0-10)
[2021-05-12 21:57] LABS: Troponin 5 2HR Delta -1.21 ABS# (0-10)
--- NOTE | 2021-05-12 22:01 | P.HP_ITS ---
Providers/Chief Complaint Primary Care Provider: Carolee Dueñas DO Chief Complaint: UNABLE TO STAY AWAKE History of Present Illness Denise Claire is a 55 year old female Medications/Allergies Home Medications Medication Instructions Recorded Confirmed Last Taken Type amitriptyline 25 mg tablet 25 mg PO DAILY 02/05/20 05/12/21 Unknown History amlodipine 5 mg tablet 5 mg PO DAILY 02/05/20 05/12/21 Unknown History aspirin 81 mg tablet,delayed 81 mg PO DAILY 02/05/20 05/12/21 Unknown History release baclofen 10 mg tablet 10 mg PO TID 02/05/20 05/12/21 Unknown History budesonide-formoterol HFA 80 2 puff INHALATION BID 02/05/20 05/12/21 Unknown History mcg-4.5 mcg/actuation aerosol inhaler cholecalciferol (vitamin D3) 25 25 mcg PO DAILY 02/05/20 05/12/21 Unknown History mcg (1,000 unit) capsule ferrous sulfate 325 mg (65 mg 325 mg PO DAILY 02/05/20 05/12/21 Unknown History iron) tablet hydrocodone 10 mg-acetaminophen 1 tab PO Q8H PRN 02/05/20 05/12/21 Unknown History 325 mg tablet leflunomide 20 mg tablet 20 mg PO DAILY 02/05/20 05/12/21 Unknown History lisinopril 40 mg tablet 40 mg PO DAILY 02/05/20 05/12/21 Unknown History paroxetine HCl 30 mg tablet 30 mg PO DAILY 02/05/20 05/12/21 Unknown History prednisone 10 mg tablet 10 mg PO DAILY 02/05/20 05/12/21 Unknown History simvastatin 10 mg tablet 10 mg PO DAILY 02/05/20 05/12/21 Unknown History tofacitinib 11 mg tablet,extended 11 mg PO DAILY 02/05/20 05/12/21 Unknown History release 24 hr vitamin B complex 1 tab PO DAILY 02/05/20 05/12/21 Unknown History adalimumab [Humira(CF) Pen] 40 mg SUBCUT Q7D 05/12/21 05/12/21 Unknown History duloxetine 60 mg PO DAILY 05/12/21 05/12/21 Unknown History gabapentin 300 mg PO DAILY 05/12/21 05/12/21 Unknown History pseudoephedrine-guaifenesin [Mucus 1 tab PO DAILY PRN 05/12/21 05/12/21 Unknown History Relief D (pseudoephed)] Allergies Allergy/AdvReac Type Severity Reaction Status Date / Time No Known Allergies Allergy Verified 02/05/20 10:07 PFSH Acute PFSH: Medical History COPD (chronic obstructive pulmonary disease) Facet arthritis, degenerative, lumbar spine 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 Lumbar paraspinal muscle spasm Myofascial pain dysfunction syndrome Pain management contract signed Rheumatoid arthritis Surgical History Hx of hysterectomy Tubal ligation status Family History (Updated 05/12/21 @ 22:03 by Rosalia Boss MD) Other Family history non-contributory Social History Smoking and tobacco status: current every day smoker cigarettes Packs smoked per day: 0.75 Alcohol intake: current Alcohol intake frequency: holidays/special occasions only Household members: spouse Marital status: History of recent travel: No Vitals/I&O/Wt Last Vital Signs Temp 98.3 F 05/12/21 17:03 Pulse 74 05/12/21 17:33 Resp 16 05/12/21 17:33 BP 122/72 05/12/21 17:03 Pulse Ox 90 05/12/21 17:33 Weight last 48 hrs Weight 40.823 kg Data : 05/12/21 18:24 05/12/21 18:24 A&P Assessment and plan (1) Acute dehydration: Status: Acute (2) Altered mental status: Status: Acute Qualifiers: Altered mental status type: disorientation Qualified Code(s): R41.0 - Disorientation, unspecified (3) Polypharmacy: Status: Acute Coding Level of Care Code Acute Appeals Examiner for [facility] Diagnoses Acute dehydration E86.0 Altered mental status R41.0 Altered mental status type: disorientation Polypharmacy Z79.899
[2021-05-12 22:22] VITALS: BP 157/95; PULSE 98; RESP 20; O2SAT 94
[2021-05-12 22:35] LABS: D Dimer 0.36 ug/mIFEU (0-0.59)
[2021-05-12 22:48] VITALS: BP 155/77; PULSE 102; RESP 23; O2SAT 96
== END 2021-05-12 22:49 | disposition still patient (30) ==
LOC: ER 22:00 → MEDSURG 22:27
PROVIDERS: Family Medicine; Emergency Provider Emergency Medicine; PCP Family Medicine
DX: R41.82 Altered mental status, unspecified (principal); E86.0 Dehydration; J96.90 Respiratory failure, unspecified, unspecified whether with hypoxia or hypercapnia; Z79.82 Long term (current) use of aspirin; J44.9 Chronic obstructive pulmonary disease, unspecified; I10 Essential (primary) hypertension; F17.210 Nicotine dependence, cigarettes, uncomplicated
CPT/HCPCS: 36600; 70450; 71045; 80051; 80053; 81003; 82140; 82330; 82550; 82805; 83605; 83690; 83735; 84484; 85025; 85378; 93005; 96360; 99284; J7030

== ENCOUNTER 2021-08-11 12:02 | Outpatient (CLI) | payer BC, SELFPAY ==
--- NOTE | 2021-08-11 12:12 | XR_ITS ---
WS: [id number] RIGHT HAND: 3 VIEW(S) TECHNIQUE: PA, oblique and lateral. HISTORY: SWELLING OF JOINT, R HAND COMPARISON: 10/24/2018 Focal area of periosteal reaction in a sunburst distribution involving the distal lateral third metac arpal. The cortex of the bone appears intact. This is suspicious for periosteal reaction and there is adjacent soft tissue edema. No definite fractures are identified. Due to the appearance radiographic ally this could be an aggressive lesion. Interphalangeal joint space narrowing. XR/XR hand RT min 3V* [id number] IMPRESSION: 1. Periosteal reaction in a sunburst distribution involving the distal third m etacarpal with adjacent soft tissue edema. This could be a benign or malignant etiology. Recommend MRI RIGHT hand with and without contrast. 2. No fractures are identified.
== END 2021-08-11 12:03 | disposition home or self-care (01) ==
LOC: RAD 12:08
PROVIDERS: PCP Family Medicine; Visit Provider Family Medicine
DX: M79.89 Other specified soft tissue disorders (principal)
CPT/HCPCS: 73130